=== PATIENT | male | born 1965 | race Caucasian/White ===

== ENCOUNTER 2021-05-18 09:31 | Emergency (ER) | payer SELFPAY ==
[2021-05-18 09:52] VITALS: BP 142/85; PULSE 82; RESP 18; TEMP 38.7; O2SAT 94; BMI 38.0
--- NOTE | 2021-05-18 10:25 | ED_ITS ---
Documented by User: DERRICK De La Paz 05/19/21 08:40 HPI - COVID General: Chief Complaint: COVID symptoms Stated Complaint: bilateral eye pain, headache, fever Time Seen by Provider: 05/18/21 09:59 Triage information: Has fever, cough or shortness of breath . No known COVID + exposure last 14 days History of Present Illness: HPI Narrative: Patient is a 55-year-old male comes to the ED with headache, fever, sinus pain. Patient says symptoms have been going on for the past 7 days. Fever started today. He has felt so bad for the past week that he actually missed work for most of last week. He wakes up every morning with signage congestion and a headache. He says this is the worst headache he has had and it feels like it is right behind the eyes. Endorses bilateral eye pain. Denies any numbness/tingling or weakness to 1 side of his body or face. Denies any vision changes. He also has started developing a cough that is worse in the mornings when he gets up and he describes it as produ ctive with some occasional green sputum. Endorses body aches and nausea. He states he has not been eating and drinking much over the last week because nothing sounds good or taste good. Endorses a loss of taste and smell. He denies any abdominal pain, shortness of breath, chest pain, nausea/vomiting, bladder or bowel symptoms. Patient has not been vaccinated for COVID-19 and denies any known exposure. COVID 19 common symptoms: positive fever(s), productive cough, body aches, headache(s), nasal congestion and nausea; negative chills, non-productive cough, dyspnea, fatigue, throat pain, vomiting or diarrhea COVID 19 other sytmptoms: negative chest pain COVID Results: SARS-CoV-2 Antigen (Rapid) Negative (Negative) 05/18/21 12:03 05/18/21 Review of Systems Const: Reports: fever(s) and body aches; Denies: chills or fatigue Eyes: Denies: change in vision or eye discomfort ENMT: Reports: nasal congestion and sinus pain; Denies: throat pain, odynophagia or nasal discharge Card: Denies: chest pain, palpitations, edema, swelling of feet/ankles, dyspnea on exertion or orthopnea Resp: Reports: productive cough; Denies: dyspnea or non-productive cough GI: Reports: nausea; Denies: abdominal pain, vomiting, diarrhea, constipation or hematochezia : Denies: flank pain, difficulty urinating, dysuria or hematuria Musc: Denies: neck pain, back pain or extremity swelling Skin/Breast: Denies: rash or new lesions Neuro: Reports: headache(s) and dizziness; Denies: numbness in extremities or weakness in extremities PFSH ED PFSH: Family History Mother Diabetes Social History Smoking and tobacco status: never smoked Alcohol intake: never Marital status: Current occupational status: employed Physical Exam Const: COMMON NORMALS: no acute distress, patient oriented x3, healthy appearing and alert GENERAL APPEARANCE: cooperative and comfortable HENMT: COMMON NORMALS: normocephalic HEAD & SCALP: normocephalic FACE & SINUS: no sinus tenderness MOUTH: Normal oral and palatal mucosa present THROAT: posterior oropharynx normal and uvula midline Eye: COMMON NORMALS: Equal, round and reactive pupils present PUPIL: Yes Equal, round and reactive pupils present Neck/C-Spine: COMMON NORMALS: supple GENERAL: Yes normal visual inspection Resp: COMMON NORMALS: normal respiratory effort, No retractions, No use of accessory muscles and clear to auscultation bilaterally EFFORT & INSPECTION: Yes able to speak in complete sentences, No tachypneic, No respiratory distress and No labored AUSCULTATION: clear to auscultation bilaterally Cardio: COMMON NORMALS: regular rate, regular rhythm, S1 normal heart sound present, S2 normal heart sound present, No gallops present (Cardio), No clicks present (Cardio), No murmurs present (Cardio) and Peripheral pulses 2+ throughout RATE: regular rate RHYTHM: regular rhythm HEART SOUNDS: S1 normal heart sound present and S2 normal heart sound present PERIPHERAL PULSES: Peripheral pulses 2+ throughout GI: COMMON NORMALS: Normal to inspection, nondistended, normoactive bowel sounds present, Soft to palpation, non-tender and no masses PALPATION: Yes Soft to palpation : COMMON NORMALS: Yes no CVA tenderness BLADDER/KIDNEY EXAM: Yes no CVA tenderness Back/Pelvis: COMMON NORMALS: no CVA tenderness Extremity: COMMON NORMALS: normal to inspection Neuro: COMMON NORMALS: patient oriented x3, CN's II-XII intact bilaterally and moves all extremities SENSORIUM/ORIENTATION: Yes alert Skin: GENERAL SKIN EXAM: dry skin Course Vital Signs: Vital signs: Vital Signs Temperature 101.6 F H 05/18/21 09:52 Pulse Rate 65 05/18/21 14:46 Respiratory Rate 16 05/18/21 14:46 Blood Pressure 142/85 05/18/21 09:52 Pulse Oximetry 92 05/18/21 14:46 MDM - COVID MDM Narrative: Medical decision making narrative: Patient is a 55-year-old male comes to the ED with upper respiratory symptoms. Symptoms have been going on for approximately 1 week. He also reports having productive cough, sinus congestion and headache with pain behind the eyes. Denies any other neurological symptoms. Patient had a temperature of 101.6 but rest of vitals were stable. Patient appeared nontoxic and in no acute distress or pain and was resting comfortably on exam bed. Exam was benign. CBC was unremarkable. So dium level 132 but the rest of CMP was unremarkable. Covid negative. CT of head showed no acute findings. Small arachnoid cyst was noted but states this is usually of no clinical significance. Based off of patient's symptoms I think the CT finding is benign but I did tell patient about it and told him he can follow-up with his PCP about it in a week. Chest x-ray showed nonspecific mild bibasilar opacities likely pneumonia. Patient was given IV 1 L of fluids, Zofran, Tylenol and Toradol while here in the ED. He was also given a dose of Decadron while here as well. Patient diagnosed with pneumonia and acute upper respiratory infection. He was discharged home with a prescription for some Zofran Z-[place] and prednisone. He was told to follow-up with his PCP in 7 to 10 days for reevaluation. Return to ED precautions given. Patient understood and agree with plan. Lab Data: Attestation: I reviewed the patient's lab results. Labs: Lab Results 05/18/21 05/18/21 05/18/21 10:58 10:58 12:03 WBC 3.4 10^3/uL L 10^ 3/uL (4.0-10.0) RBC 5.18 10^6/uL 10^6 /uL (4.1-5.3) Hgb 15.7 g/dL g/dL (11.7-16.6) Hct 47.0 % % (42.0-52.0) MCV 90.7 fl fl (80-94) MCH 30.3 pg pg (28.0-34.0) MCHC 33.4 g/dL g/dL (30.0-36.0) RDW 13.0 % % (12.1-15.1) Plt Count 85 10^3/cmm L 10^ 3/cmm (130-400) MPV 13.0 fL H fL (7.4-10.4) Neut % (Auto) 67.4 % % Lymph % (Auto) 23.1 % % [place] % (Auto) 9.2 % % Eos % (Auto) 0.0 % % Baso % (Auto) 0.0 % % Neut # (Auto) 2.27 10^3/uL 10^3 /uL (1.8-7.7) Lymph # (Auto) 0.8 10^3/uL 10^3/ uL (0.8-4.8) [place] # (Auto) 0.3 10^3/uL 10^3/ uL (0.2-0.9) Eos # (Auto) 0.0 10^3/uL 10^3/ uL (0.0-0.8) Baso # (Auto) 0.0 10^3/uL 10^3/ uL (0.0-0.1) Nucleated RBC % (a uto) 0 % % Nucleated RBCs # 0.0 /100WBC /100W BC Sodium 132 mmol/L L mmol /L (136-145) Potassium 4.1 mmol/L mmol/L (3.5-5.1) Chloride 94 mmol/L L mmol/ L (98-107) Carbon Dioxide 28 mmol/L mmol/L (22-29) Anion Gap 14.1 (5-19) BUN 14 mg/dL mg/dL (6-20) Creatinine 1.0 mg/dL mg/dL (0.7-1.2) GFR Calculation 78.2 mL/min L mL/ min (90-130) Glucose 131 mg/dL H mg/dL (65-115) Calculated Osmolal ity 276 mOsm/kg L mOs m/kg (285-295) Calcium 8.7 mg/dL mg/dL (8.5-10.5) Total Bilirubin 0.6 mg/dL mg/dL (0.15-1.2) AST 31 U/L U/L (0-40) ALT 28 U/L U/L (0-41) Alkaline Phosphata se 68 IU/L IU/L (40-130) Total Protein 7.2 g/dL g/dL (6.6-8.7) Albumin 3.9 g/dL g/dL (3.5-5.2) Globulin 3.3 g/dL g/dL (1.3-4.6) SARS-CoV-2 Ag (Rap id) Negative (Negative) Imaging Data: CT Head: Attestation: I personally reviewed and interpreted this imaging study as follows: Radiologist's impression: [employer] [address] [address] Scan Report Signed Patient: Marianne Jon Unit #: [id number] : [id number] Age/Sex: 55 / M ADM Date: 05/18/21 Loc: ER Room/Bed: Attending Dr: Ordering Provider/Ordering MD: Rory Kaye Date of Service: 05/18/21 Procedure(s): CT head wo con* [id number] Accession Number(s): [id number] Report Number: [id number] PROCEDURE INFORMATION: Exam: CT Head Without Contrast Exam date and time: 05/18/2021 10:25 AM Age: 55 years old Clinical indication: Pain; Headache; Additional info: Headache with bilateral eye pain TECHNIQUE: Imaging protocol: Computed tomography of the head without contrast. Total images: 209 Radiation optimization: All CT scans at this facility use at least one of these dose optimization techniques: automated exposure control; mA and/or kV adjustment per patient size (includes targeted exams where dose is matched to clinical indication); or iterative reconstruction. COMPARISON: No relevant prior studies available. RADIATION DOSE METRICS: Total DLP (mGy-cm): 934 FINDINGS: Brain: Small CSF fluid collection medially within the left middle cranial fossa felt to represent a small arachnoid cyst measuring 3.1 x 1.2 cm. This is typically of no clinical significance. Cerebral ventricles: No ventriculomegaly. Paranasal sinuses: Visualized sinuses are unremarkable. No fluid levels. Mastoid air cells: Visualized mastoid air cells are well aerated. Bones/joints: Unremarkable. No acute fracture. Soft tissues: Unremarkable. CT/CT head wo con* [id number] IMPRESSION: 1. No acute intracranial pathology detected. 2. Small CSF fluid collection medially within the left middle cranial fossa felt to represent a small arachnoid cyst measuring 3.1 x 1.2 cm. This is typically of no clinical significance. Radiation Dose CTDIVOL = (mGy): DLP = 934 (mGy-cm) Dictated By: Rashi Young MD Signed By: Rashi Young MD Signed Date/Time: 05/18/21 1219 DD/ 1025 CXR: Attestation: I personally reviewed and interpreted this imaging study as follows: Radiologist's impression: [address] [address] XRay Report Signed Patient: Marianne Jon Unit #: [id number] : 1965 Age/Sex: 55 / M ADM Date: 05/18/21 Loc: ER Room/Bed: Attending Dr: Ordering Provider/Ordering MD: Rory Kaye Date of Service: 05/18/21 Procedure(s): XR chest 1V portable [id number] Accession Number(s): [id number] Report Number: [id number] PROCEDURE INFORMATION: Exam: XR Chest Exam date and time: 05/18/2021 10:25 AM Age: 55 years old Clinical indication: Cough and fever TECHNIQUE: Imaging protocol: XR of the chest. Views: 1 view. Total images: 1 COMPARISON: CR XR KUB [id number] 06/12/2019 9:03 AM FINDINGS: Lungs: Nonspecific mild patchy bibasilar opacities, favoring atelectasis or pneumonia. Pleural spaces: Unremarkable. No pleural effusion. No pneumothorax. Heart/Mediastinum: Mild cardiomegaly. Bones/joints: Unremarkable. XR/XR chest 1V portable [id number] IMPRESSION: 1. Mild cardiomegaly. 2. Nonspecific mild patchy bibasilar opacities, favoring atelectasis or pneumonia. Radiation Dose CTDIVOL = (mGy): DLP = (mGy-cm) Dictated By: Rashi Young MD Signed By: Rashi Young MD Signed Date/Time: 05/18/21 1216 DD/ 1025 COVID Results: SARS-CoV-2 Antigen (Rapid) Negative (Negative) 05/18/21 12:03 05/18/21 Discharge Plan Discharge Patient Disposition: Home Clinical Impression: Pneumonia, Acute upper respiratory infection Condition: Stable Prescriptions: New azithromycin 250 mg tablet See Rx Instructions .ROUTE .COMPLEX Qty: 6 RF: 0 ondansetron 4 mg tablet,disintegrating 4 mg PO Q8H PRN (Reason: nausea and vomiting) Qty: 15 RF: 0 Discharge Orders: Discharge ED (Routine); Ordered 05/18/21 Ordered By: Rory Kaye Discharge Diet: Regular Discharge Activity: Resume usual activity Patient Instructions: Upper Respiratory Infection (DC), Viral Syndrome (ED), Pneumonia (ED) Activity Restrictions/Additional Instructions: Follow-up with medical provider as directed in 5 to 7 days for reevaluation. Take medications as prescribed. Take [id number] Tylenol or Motrin for any fevers or pain. Make sure you drink plenty fluids to stay hydrated. Return to the ER or your medical provider if condition worsens. Please read and understand discharge instructions. Thank you for choosing [facility] for your healthcare needs today. Please realize this is an emergency room and that we are providing you with a medical screening exam and this may not be complete and all inclusive of all the testing and or work up that you may need to determine your ailment or severity of your illness. It is very important that you follow up as instructed or that you return to the Emergency Department should you have concerns or if your condition changes or worsens in any way. Coding Level of Care Code ED Swimming Pool Servicer for Chg Fwd Exam Comprehensive Documented by User: Morgan Aguilera MD 05/28/21 23:49 HPI - COVID General: Chief Complaint: COVID symptoms Stated Complaint: bilateral eye pain, headache, fever Time Seen by Provider: 05/18/21 09:59 COVID Results: SARS-CoV-2 Antigen (Rapid) Negative (Negative) 05/18/21 12:03 05/18/21 [facility] ED PFSH: Family History Mother Diabetes Social History Smoking and tobacco status: never smoked Alcohol intake: never Marital status: Current occupational status: employed Course Vital Signs: Vital signs: Vital Signs Temperature 101.6 F H 05/18/21 09:52 Pulse Rate 65 05/18/21 14:46 Respiratory Rate 16 05/18/21 14:46 Blood Pressure 142/85 05/18/21 09:52 Pulse Oximetry 92 05/18/21 14:46 MDM - COVID Lab Data: Labs: Lab Results 05/18/21 05/18/21 05/18/21 10:58 10:58 12:03 WBC 3.4 10^3/uL L 10^ 3/uL (4.0-10.0) RBC 5.18 10^6/uL 10^6 /uL (4.1-5.3) Hgb 15.7 g/dL g/dL (11.7-16.6) Hct 47.0 % % (42.0-52.0) MCV 90.7 fl fl (80-94) MCH 30.3 pg pg (28.0-34.0) MCHC 33.4 g/dL g/dL (30.0-36.0) RDW 13.0 % % (12.1-15.1) Plt Count 85 10^3/cmm L 10^ 3/cmm (130-400) MPV 13.0 fL H fL (7.4-10.4) Neut % (Auto) 67.4 % % Lymph % (Auto) 23.1 % % [place] % (Auto) 9.2 % % Eos % (Auto) 0.0 % % Baso % (Auto) 0.0 % % Neut # (Auto) 2.27 10^3/uL 10^3 /uL (1.8-7.7) Lymph # (Auto) 0.8 10^3/uL 10^3/ uL (0.8-4.8) [place] # (Auto) 0.3 10^3/uL 10^3/ uL (0.2-0.9) Eos # (Auto) 0.0 10^3/uL 10^3/ uL (0.0-0.8) Baso # (Auto) 0.0 10^3/uL 10^3/ uL (0.0-0.1) Nucleated RBC % (a uto) 0 % % Nucleated RBCs # 0.0 /100WBC /100W BC Sodium 132 mmol/L L mmol /L (136-145) Potassium 4.1 mmol/L mmol/L (3.5-5.1) Chloride 94 mmol/L L mmol/ L (98-107) Carbon Dioxide 28 mmol/L mmol/L (22-29) Anion Gap 14.1 (5-19) BUN 14 mg/dL mg/dL (6-20) Creatinine 1.0 mg/dL mg/dL (0.7-1.2) GFR Calculation 78.2 mL/min L mL/ min (90-130) Glucose 131 mg/dL H mg/dL (65-115) Calculated Osmolal ity 276 mOsm/kg L mOs m/kg (285-295) Calcium 8.7 mg/dL mg/dL (8.5-10.5) Total Bilirubin 0.6 mg/dL mg/dL (0.15-1.2) AST 31 U/L U/L (0-40) ALT 28 U/L U/L (0-41) Alkaline Phosphata se 68 IU/L IU/L (40-130) Total Protein 7.2 g/dL g/dL (6.6-8.7) Albumin 3.9 g/dL g/dL (3.5-5.2) Globulin 3.3 g/dL g/dL (1.3-4.6) SARS-CoV-2 Ag (Rap id) Negative (Negative) COVID Results: SARS-CoV-2 Antigen (Rapid) Negative (Negative) 05/18/21 12:03 05/18/21 Discharge Plan Discharge Patient Disposition: Home Clinical Impression: Pneumonia, Acute upper respiratory infection Condition: Stable Prescriptions: New azithromycin 250 mg tablet See Rx Instructions .ROUTE .COMPLEX Qty: 6 RF: 0 ondansetron 4 mg tablet,disintegrating 4 mg PO Q8H PRN (Reason: nausea and vomiting) Qty: 15 RF: 0 Discharge Orders: Discharge ED (Routine); Ordered 05/18/21 Ordered By: Rory Kaye Discharge Diet: Regular Discharge Activity: Resume usual activity Patient Instructions: Upper Respiratory Infection (DC), Viral Syndrome (ED), Pneumonia (ED) Activity Restrictions/Additional Instructions: Follow-up with medical provider as directed in 5 to 7 days for reevaluation. Take medications as prescribed. Take [id number] Tylenol or Motrin for any fevers or pain. Make sure you drink plenty fluids to stay hydrated. Return to the ER or your medical provider if condition worsens. Please read and understand discharge instructions. Thank you for choosing [facility] for your healthcare needs today. Please realize this is an emergency room and that we are providing you with a medical screening exam and this may not be complete and all inclusive of all the testing and or work up that you may need to determine your ailment or severity of your illness. It is very important that you follow up as instructed or that you return to the Emergency Department should you have concerns or if your condition changes or worsens in any way. Coding Level of Care Code ED Swimming Pool Servicer for Luda Cannon Exam Comprehensive
--- NOTE | 2021-05-18 10:25 | XRR_ITS ---
PROCEDURE INFORMATION: Exam: XR Chest Exam date and time: 05/18/2021 10:25 AM Age: 55 years old Clinical indication: Cough and fever TECHNIQUE: Imaging protocol: XR of the chest. Views: 1 view. Total images: 1 COMPARISON: CR XR KUB [id number] 06/12/2019 9:03 AM FINDINGS: Lungs: Nonspecific mild patchy bibasilar opacities, favoring atelectasis or pneumonia. Pleural spaces: Unremarkable. No pleural effusion. No pneumothorax. Heart/Mediastinum: Mild cardiomegaly. Bones/joints: Unremarkable. XR/XR chest 1V portable [id number] IMPRESSION: 1. Mild cardiomegaly. 2. Nonspecific mild patchy bibasilar opacities, favoring atelectasis or pneumonia. Radiation Dose CTDIVOL = (mGy): DLP = (mGy-cm)
[2021-05-18 11:17] LABS: Hemoglobin 15.7 g/dL (11.7-16.6); Lymphocytes # 0.8 10^3/uL (0.8-4.8); Lymphocytes % 23.1 %; Mean Corpuscular HGB Conc 33.4 g/dL (30.0-36.0); Mean Corpuscular Hemoglobin 30.3 pg (28.0-34.0); Mean Corpuscular Volume 90.7 fl (80-94); Monocytes # 0.3 10^3/uL (0.2-0.9); Monocytes % 9.2 %; Neutrophils # 2.27 10^3/uL (1.8-7.7); Neutrophils % 67.4 %; Nucleated Red Blood Cells % 0 %; Platelet Count 85 10^3/cmm (130-400); Red Blood Count 5.18 10^6/uL (4.1-5.3); White Blood Count 3.4 10^3/uL (4.0-10.0)
[2021-05-18 11:49] LABS: Alanine Aminotransferase 28 U/L (0-41); Albumin Level 3.9 g/dL (3.5-5.2); Alkaline Phosphatase 68 IU/L (40-130); Anion Gap 14.1 (5-19); Aspartate Amino Transferase 31 U/L (0-40); Blood Urea Nitrogen 14 mg/dL (6-20); Calcium 8.7 mg/dL (8.5-10.5); Carbon Dioxide 28 mmol/L (22-29); Chloride 94 mmol/L (98-107); Globulin 3.3 g/dL (1.3-4.6); Glomerular Filtration Rate 78.2 mL/min (90-130); Glucose 131 mg/dL (65-115); Osmolality Calculated 276 mOsm/kg (285-295); Potassium 4.1 mmol/L (3.5-5.1); Sodium 132 mmol/L (136-145); Total Bilirubin 0.6 mg/dL (0.15-1.2); Total Protein 7.2 g/dL (6.6-8.7)
[2021-05-18] MEDS: acetaminophen 500 mg Tablet 1000 MG PO (11:57)
[2021-05-18] MEDS: ondansetron 2 mg/ML SDV 2 mL 4 MG IVP (11:58)
[2021-05-18] MEDS: sodium chloride 0.9% 1,000 ML 999 ML IV (11:58)
[2021-05-18 12:01] VITALS: O2SAT 94
[2021-05-18 12:36] LABS: SARS Covid-2 Antigen Negative (Negative)
[2021-05-18] MEDS: dexamethasone 10 mg/mL INJ IVP (13:33)
[2021-05-18] MEDS: ketorolac 30 mg/mL INJ IVP (13:33)
[2021-05-18 14:46] VITALS: PULSE 65; RESP 16; O2SAT 92
== END 2021-05-18 14:47 | disposition home or self-care (01) ==
PROVIDERS: Emergency Provider Physician Assistant
DX: J18.9 Pneumonia, unspecified organism (principal); J06.9 Acute upper respiratory infection, unspecified; Z20.822 Contact with and (suspected) exposure to COVID-19
CPT/HCPCS: 70450; 71045; 80053; 85025; 87040; 87426; 96361; 96374; 96375; 99284; J1100; J1885; J2405; J7030